=== PATIENT | male | born 1935 | race Caucasian/White ===

== ENCOUNTER 2019-02-04 20:37 | Emergency (ER) | payer MEDICARE, OTHER ==
[~2019-02-04] VITALS: Ht 182.9 cm; Wt 80.0 kg
[2019-02-04 20:41] VITALS: BP 0/0; PULSE 120; RESP 6; Ht 182.9 cm; Wt 80.0 kg
--- NOTE | 2019-02-04 20:49 | ERD ---
ER Documentation Chief Complaint Chief Complaint bib ra from [facility] for comfort measures, low o2 sat HPI Patient is an 83-year-old male on hospice with comfort measures who presents for GI bleeding. He had had 5 hours of vomiting blood which the hospice nurse was unable to control at home. She became concerned and called 911. The patient was brought in by ambulance. When he arrived he was not breathing and appeared to be in ventricular fibrillation. As he was comfort measures only and DNR we DO NOT RESUSCITATE him and I performed a exam as he quickly went into asystole. He was pronounced at 2041. I cannot obtain history otherwise. The hospice nurse is now here with him at the bedside to arrange for arrangements. ROS All systems reviewed and are negative except as per history of present illness. Allergies Allergies: Coded Allergies: Unknown: Unable to obtain (Unverified , 02/04/19) PMhx/Soc Medical and Surgical Hx: Unable to obtain Hx Alcohol Use: No Hx Substance Use: No Hx Tobacco Use: No Smoking Status: Never smoker FmHx Unable to obtain Physical Exam Vitals Vital Signs Date Temp Pulse Resp B/P (MAP) Pulse Ox O2 O2 Flow FiO2 Time Delivery Rate 02/04/19 98.5 120 6 0/0 (0) 65 20:41 Physical Exam Const: No acute distress Head: Atraumatic Eyes: Normal Conjunctiva ENT: Normal External Ears, Nose and Mouth. Neck: Full range of motion. No meningismus. Resp: Clear to auscultation bilaterally Cardio: Regular rate and rhythm, no murmurs Abd: Soft, non tender, non distended. Normal bowel sounds Skin: No petechiae or rashes Back: No midline or flank tenderness Ext: No cyanosis, or edema Neur: Awake and alert Psych: Normal Mood and Affect Procedures/MDM Patient is an 83-year-old male who presents after a GI bleed. He arrived in ventricular fibrillation. He is a DNR with comfort measures only. He quickly went into asystole. I performed a exam. His pupils were fixed and dilated. He had no corneal reflex. There were no heart sounds or lung sounds auscultated. There was pooling of blood in the oropharynx. He did not respond to voice or to painful stimuli. He was pronounced at 2041. Departure Diagnosis: Primary Impression: GI bleed GI bleed type/associated pathology: unspecified gastrointestinal hemorrhage type Qualified Codes: K92.2 - Gastrointestinal hemorrhage, unspecified Condition: Critical RONNA FRIEND MD Feb 04, 2019 20:49
== END 2019-02-05 00:20 | disposition expired ==
LOC: E/R 20:37
DX: K92.2 Gastrointestinal hemorrhage, unspecified (principal)
CPT/HCPCS: 99283